=== PATIENT | male | born 1995 | race Caucasian/White ===

== ENCOUNTER 2017-06-25 16:02 | Emergency (ER) | payer SELFPAY ==
[~2017-06-25 16:02] MED LIST: QUET200T PO
== END 2017-06-25 16:14 | disposition left against medical advice (07) ==
LOC: EMS 16:04
DX: Z00.8 Encounter for other general examination (principal); Z53.21 Procedure and treatment not carried out due to patient leaving prior to being seen by health care provider

== ENCOUNTER 2017-10-24 10:06 | Inpatient (IN) | payer MEDICAID ==
[~2017-10-24] VITALS: Ht 180.3 cm; Wt 94.3 kg
[~2017-10-24 10:06] MED LIST changes: +FLUO-191 PO; -QUET200T PO; +QUET300XR PO
[2017-10-24] MEDS ORDERED: HALOPERIDOL LACTATE 5 MG/ML VIAL IM ONE (10:30)
[2017-10-24] MEDS ORDERED: DiphenhydrAMINE HCL 50 MG/ML VIAL IM ONE (10:30)
[2017-10-24] MEDS ORDERED: LORazepam 2 MG/ML VIAL IM ONE (10:30)
[2017-10-24 10:51] LABS: BASOPHILS % (AUTO) 0.4 % (0.0-2.0); EOSINOPHILS % (AUTO) 0.1 % (1.0-6.0); HEMATOCRIT 41.3 % (41-53); HEMOGLOBIN 14.3 g/dL (13.5-17.5); LYMPHOCYTES # (AUTO) 1.9 K/uL (1.0-4.8); LYMPHOCYTES % (AUTO) 17.3 % (22.0-44.0); MEAN CORPUSCULAR HEMOGLOBIN 29.2 pg (26.0-34.0); MEAN CORPUSCULAR HGB CONC 34.6 G/dL (31.0-37.0); MEAN CORPUSCULAR VOLUME 84 fL (80-100); MONOCYTES # (AUTO) 1.3 K/uL (0.1-1.0); MONOCYTES % (AUTO) 11.8 % (2.0-9.0); NEUTROPHILS # (AUTO) 7.7 K/uL (1.8-7.7); NEUTROPHILS % (AUTO) 70.4 % (40.0-70.0); PLATELET COUNT (AUTO) 331 K/uL (150-450); RED BLOOD CELL COUNT(AUTO) 4.89 MIL/uL (4.50-5.90); RED CELL DISTRIBUTION WIDTH 14.2 % (11.5-14.5)
[2017-10-24 10:54] LABS: ANION GAP 13 mmol/L (8-16); CALCIUM, TOTAL 9.4 mg/dL (8.8-10.5); CARBON DIOXIDE 27 mmol/L (22-29); CHLORIDE 104 mmol/L (98-107); CREATININE 1.51 mg/dL (0.60-1.30); GLOMERULAR FILTR. RATE CALC 59 mL/min (>60); GLUCOSE,RANDOM 83 mg/dL (70-110); POTASSIUM 3.7 mmol/L (3.5-5.1); SODIUM SERUM 144 mmol/L (136-145); UREA NITROGEN, BLOOD 25 mg/dL (7-18)
[2017-10-24 10:59] LABS: ALANINE AMINOTRANSFERASE 170 U/L (12-78); ALBUMIN 4.9 g/dL (3.4-5.0); ALKALINE PHOSPHATASE 74 U/L (46-116); ASPARTATE AMINOTRANSFERASE 137 U/L (15-37); BILIRUBIN,TOTAL 0.9 mg/dL (0.1-1.0); TOTAL PROTEIN, SERUM 8.4 g/dL (6.4-8.2)
[2017-10-24 11:22] LABS: AMPHET/METH SCREEN,URINE POSITIVE (NEGATIVE); BARBITURATE SCREEN, URINE NEGATIVE (NEGATIVE); BENZODIAZEPINES SCREEN,URINE NEGATIVE (NEGATIVE); CANNABINOID SCREEN,URINE POSITIVE (NEGATIVE); COCAINE SCREEN,URINE NEGATIVE (NEGATIVE); METHADONE SCREEN, URINE NEGATIVE (NEGATIVE); OPIATE SCREEN,URINE NEGATIVE (NEGATIVE); PHENCYCLIDINE SCREEN,URINE NEGATIVE (NEGATIVE)
[2017-10-24] MEDS ORDERED: BACITRACIN 0.9 GM PACKET OINTMENT TP ONE ×2 (13:21→13:30)
[2017-10-24] MEDS ORDERED: HALOPERIDOL 5 MG TABLET PO PRN (14:30)
[2017-10-24] MEDS ORDERED: ZOLPIDEM TARTRATE 10 MG TABLET PO PRN (14:30)
[2017-10-24] MEDS: LORazepam 2 MG TABLET PO PRN (15:06)
[2017-10-24 19:57] VITALS: BP 104/60
[2017-10-24] MEDS: QUEtiapine FUMARATE 300 MG ER TABLET PO SCH (20:08)
[2017-10-24] MEDS ORDERED: IBUPROFEN 600 MG TABLET PO PRN (21:00)
[2017-10-24] MEDS ORDERED: ACETAMINOPHEN 325 MG TABLET PO PRN (21:00)
[2017-10-25 06:09] VITALS: BP 109/71
[2017-10-25 08:31] VITALS: BP 131/67
[2017-10-25] MEDS: FLUoxetine HCL 20 MG CAPSULE PO SCH (09:00)
[2017-10-25] MEDS: LORazepam 2 MG TABLET PO PRN (16:08)
[2017-10-25 16:23] VITALS: BP 113/69
[2017-10-25] MEDS: QUEtiapine FUMARATE 300 MG ER TABLET PO SCH (20:22)
[2017-10-26 05:09] VITALS: BP 118/62
[2017-10-26 08:16] VITALS: BP 133/80
[2017-10-26] MEDS: FLUoxetine HCL 20 MG CAPSULE PO SCH (08:33)
[2017-10-26 08:55] LABS: ALANINE AMINOTRANSFERASE 99 U/L (12-78); ALBUMIN 3.3 g/dL (3.4-5.0); ALKALINE PHOSPHATASE 57 U/L (46-116); ANION GAP 9 mmol/L (8-16); ASPARTATE AMINOTRANSFERASE 56 U/L (15-37); BILIRUBIN,TOTAL 0.3 mg/dL (0.1-1.0); CALCIUM, TOTAL 8.5 mg/dL (8.8-10.5); CARBON DIOXIDE 26 mmol/L (22-29); CHLORIDE 107 mmol/L (98-107); CREATININE 0.87 mg/dL (0.60-1.30); GLOMERULAR FILTR. RATE CALC > 60 mL/min (>60); GLUCOSE,RANDOM 74 mg/dL (70-110); POTASSIUM 3.8 mmol/L (3.5-5.1); SODIUM SERUM 142 mmol/L (136-145); TOTAL PROTEIN, SERUM 6.4 g/dL (6.4-8.2); UREA NITROGEN, BLOOD 18 mg/dL (7-18)
[2017-10-26 16:14] VITALS: BP 119/80
[2017-10-26] MEDS: QUEtiapine FUMARATE 300 MG ER TABLET PO SCH (20:02)
[2017-10-26] MEDS: LORazepam 2 MG TABLET PO PRN (20:19)
[2017-10-27 05:40] VITALS: BP 103/74
[2017-10-27 08:23] VITALS: BP 105/64
[2017-10-27] MEDS: FLUoxetine HCL 20 MG CAPSULE PO SCH (08:45)
[2017-10-27 16:55] VITALS: BP 124/79
[2017-10-27] MEDS: QUEtiapine FUMARATE 200 MG ER TABLET PO SCH (20:08)
[2017-10-28] MEDS ORDERED: FLUO-191 PO (04:17)
[2017-10-28 06:02] VITALS: BP 104/66
[2017-10-28 08:25] VITALS: BP 127/80
[2017-10-28] MEDS: FLUoxetine HCL 20 MG CAPSULE PO SCH (08:40)
[2017-10-28 16:21] VITALS: BP 104/69
[2017-10-28] MEDS: QUEtiapine FUMARATE 200 MG ER TABLET PO SCH (20:12)
[2017-10-29 06:16] VITALS: BP 123/69
[2017-10-29 08:00] VITALS: BP 122/75
[2017-10-29] MEDS: FLUoxetine HCL 20 MG CAPSULE PO SCH (09:16)
[2017-10-29 16:10] VITALS: BP 125/80
== END 2017-10-29 17:30 | disposition home or self-care (01) | DRG 750 ==
LOC: EMS 10:08 → B2S 16:36
PROVIDERS: ADMIT Psychiatry & Neurology Psychiatry; ATTEND Psychiatry & Neurology Psychiatry
PROC: 0PSMXZZ Reposition Right Carpal, External Approach (ICD-10-PCS; principal; 2017-10-24)
DX: F25.1 Schizoaffective disorder, depressive type (principal); R45.851 Suicidal ideations; F15.20 Other stimulant dependence, uncomplicated; F12.90 Cannabis use, unspecified, uncomplicated; F41.9 Anxiety disorder, unspecified; S40.011A Contusion of right shoulder, initial encounter; F10.10 Alcohol abuse, uncomplicated; F17.210 Nicotine dependence, cigarettes, uncomplicated; F60.3 Borderline personality disorder; S62.314A Displaced fracture of base of fourth metacarpal bone, right hand, initial encounter for closed fracture; S62.316A Displaced fracture of base of fifth metacarpal bone, right hand, initial encounter for closed fracture; W17.89XA Other fall from one level to another, initial encounter; Y93.89 Activity, other specified; Z79.899 Other long term (current) drug therapy; Y92.89 Other specified places as the place of occurrence of the external cause; Y99.8 Other external cause status
CPT/HCPCS: 70450; 72040; 80074; 96372; 99285; G0480; J1200; J1630; J2060

== ENCOUNTER 2017-10-31 06:56 | Emergency (ER) | payer MEDICAID ==
[~2017-10-31] VITALS: Ht 180.3 cm; Wt 96.0 kg
[~2017-10-31 06:56] MED LIST changes: +QUET200T PO
[2017-10-31] MEDS ORDERED: SODIUM CHLORIDE 0.9% 1,000 ML IV ONE (08:15)
[2017-10-31 08:28] LABS: BASOPHILS % (AUTO) 0.4 % (0.0-2.0); EOSINOPHILS % (AUTO) 0.1 % (1.0-6.0); HEMOGLOBIN 13.7 g/dL (13.5-17.5); LYMPHOCYTES # (AUTO) 1.5 K/uL (1.0-4.8); LYMPHOCYTES % (AUTO) 14.3 % (22.0-44.0); MEAN CORPUSCULAR HEMOGLOBIN 29.3 pg (26.0-34.0); MEAN CORPUSCULAR HGB CONC 35.1 G/dL (31.0-37.0); MEAN CORPUSCULAR VOLUME 84 fL (80-100); MONOCYTES # (AUTO) 1.1 K/uL (0.1-1.0); MONOCYTES % (AUTO) 10.2 % (2.0-9.0); NEUTROPHILS # (AUTO) 7.7 K/uL (1.8-7.7); PLATELET COUNT (AUTO) 301 K/uL (150-450); RED BLOOD CELL COUNT(AUTO) 4.67 MIL/uL (4.50-5.90)
[2017-10-31 08:38] LABS: ANION GAP 12 mmol/L (8-16); CALCIUM, TOTAL 9.2 mg/dL (8.8-10.5); CARBON DIOXIDE 26 mmol/L (22-29); CHLORIDE 100 mmol/L (98-107); CREATININE 1.18 mg/dL (0.60-1.30); GLOMERULAR FILTR. RATE CALC > 60 mL/min (>60); GLUCOSE,RANDOM 83 mg/dL (70-110); POTASSIUM 3.5 mmol/L (3.5-5.1); SODIUM SERUM 138 mmol/L (136-145); UREA NITROGEN, BLOOD 21 mg/dL (7-18)
[2017-10-31 09:15] VITALS: BP 123/70
[2017-10-31 09:16] LABS: ALANINE AMINOTRANSFERASE 118 U/L (12-78); ALBUMIN 4.6 g/dL (3.4-5.0); ALKALINE PHOSPHATASE 72 U/L (46-116); ASPARTATE AMINOTRANSFERASE 97 U/L (15-37); BILIRUBIN,TOTAL 0.9 mg/dL (0.1-1.0); CREATINE KINASE MB 12.9 ng/mL (0-5); TOTAL PROTEIN, SERUM 8.1 g/dL (6.4-8.2)
[2017-10-31 09:17] LABS: CKMB RELATIVE INDEX 0.4 % (0.0-4.0); CREATINE KINASE, TOTAL 3621 U/L (39-308)
== END 2017-10-31 09:45 | disposition home or self-care (01) ==
LOC: EMS 06:57
DX: R07.9 Chest pain, unspecified (principal); F15.10 Other stimulant abuse, uncomplicated; F17.210 Nicotine dependence, cigarettes, uncomplicated; F19.90 Other psychoactive substance use, unspecified, uncomplicated
CPT/HCPCS: 36415; 71046; 80053; 82550; 82553; 84484; 85025; 93005; 99285; J7030